=== PATIENT | male | born 1995 | race Two or more races ===

== ENCOUNTER 2021-10-15 17:47 | Emergency (ER) | payer SELFPAY ==
--- NOTE | 2021-10-15 17:55 | NUR ---
Attempted to triage pt, pt was not found in ER waiting room or outside ER.
--- NOTE | 2021-10-15 18:20 | NUR ---
Looked for pt again, pt was not found in the ER waiting room or outside ER.
[2021-10-15] MEDS ORDERED: HYDR-3980 PO (20:36)
== END 2021-10-15 18:39 | disposition left against medical advice (07) ==
LOC: ER 17:50
DX: Z53.21 Procedure and treatment not carried out due to patient leaving prior to being seen by health care provider (principal)

== ENCOUNTER 2021-10-15 19:52 | Emergency (ER) | payer SELFPAY ==
[~2021-10-15] VITALS: Ht 177.8 cm; Wt 81.2 kg
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
[2021-10-15] MEDS ORDERED: ONDANSETRON ODT 4 MG TAB.RAPDIS SL ONE (20:30)
[2021-10-15] MEDS ORDERED: HYDROMORPHONE 1 MG/1 ML DISP.SYRIN IM ONE (20:30)
[2021-10-15] MEDS ORDERED: HYDR-3980 PO (20:36)
[2021-10-15] MEDS ORDERED: ONDANSETRON ODT 4 MG TAB.RAPDIS ONE (20:44)
[2021-10-15] MEDS ORDERED: HYDROMORPHONE 2 MG/1 ML DISP.SYRIN ONE (20:45)
--- NOTE | 2021-10-15 21:14 | NUR ---
Patient discharged to home in stable condition. Written and verbal after care instructions given. Patient verbalizes understanding of instructions. Stressed follow up or return to ER for worsening s/s. pt ambulated well.
[2021-10-15 21:30] VITALS: BP 127/69
== END 2021-10-15 21:15 | disposition home or self-care (01) ==
LOC: ER 19:53
DX: S62.302A Unspecified fracture of third metacarpal bone, right hand, initial encounter for closed fracture (principal); V89.2XXA Person injured in unspecified motor-vehicle accident, traffic, initial encounter; Y93.89 Activity, other specified; Y92.89 Other specified places as the place of occurrence of the external cause; Y99.8 Other external cause status
CPT/HCPCS: 29125; 96372; 99283; J1170; A4663; Q0162